=== PATIENT | female | born 1960 | race Caucasian/White ===

== ENCOUNTER → 2018-04-10 | Outpatient (CLI) | payer BC ==
[~2018-04-10] MED LIST: LIDOCAINE 1% Multi-Dose 20 ML VIAL. INJ; LIDOCAINE 1% Multi-Dose 50 ML VIAL.
== END | disposition home or self-care (01) ==
LOC: US 08:34
DX: E04.1 Nontoxic single thyroid nodule (principal)
CPT/HCPCS: 76942; 88173; 88305

== ENCOUNTER → 2020-05-09 | Outpatient (CLI) | payer OTHER | END | disposition home or self-care (01) | LOC: LAB 13:58 | PROVIDERS: ATTEND Internal Medicine Gastroenterology | DX: Z11.59 Encounter for screening for other viral diseases (principal) | CPT/HCPCS: U0003-CS ==

== ENCOUNTER → 2020-05-16 | Day surgery (SDC) | payer OTHER ==
[~2020-05-16] MED LIST changes: +ESTR1TAB22 PO; +GLYCOPYRROLATE 1 MG/5 ML VIAL. ONE; +IV RINGERS,LACTATED 1000ML 1,000 ML IV SCH; -LIDOCAINE 1% Multi-Dose 20 ML VIAL. INJ; -LIDOCAINE 1% Multi-Dose 50 ML VIAL.; +LIDOCAINE 1% PF 2 ML VIAL. ONE; +METO50TA4 PO; +PROPOFOL 10 MG/ML (20ML) VIAL. IV ONE; +TRIA1CAP3 PO; +ePHEDrine PF IN SALINE 50 MG/10 ML SYRINGE. IV ONE
[2020-05-16 07:50] VITALS: BP 114/66
--- NOTE | 2020-05-16 09:09 | HP ---
ADMIT DATE: 05/16/2020 REFERRING PHYSICIAN: Live Ashby MD REASON: History of colon cancer. HISTORY OF PRESENT ILLNESS: A 60-year-old female with past medical history significant for colon cancer, colon polyps, arthritis as well as hypertension, is seen for interval colon exam. Last exam was performed in 2009. At that time, adenomatous polyps were encountered as well as cancer. She has done well since the resection. Weight and appetite are stable. There has been no melena and/or hematochezia. There has been no diarrhea or constipation. She is otherwise without additional complaints. PAST MEDICAL HISTORY: Colon cancer, colon polyps, hypertension. ALLERGIES: IBUPROFEN. MEDICATIONS: Include estrogen, metoprolol and triamterene/hydrochlorothiazide. SOCIAL HISTORY: She is a current smoker and social drinker. FAMILY HISTORY: Significant for breast cancer with grandmother and sister. Hypertension in multiple family members and myocardial infarctions with 2 grandparents and her father. PAST SURGICAL HISTORY: Appendectomy, eye surgery, hysterectomy, tonsillectomy, colon resection. REVIEW OF SYSTEMS: As per records. PHYSICAL EXAMINATION: GENERAL: Reveals a well-nourished, well-developed female who is alert, cooperative, in no acute distress. VITAL SIGNS: Temperature 97.5, pulse 64, respiratory rate 16. LUNGS: Clear. CARDIOVASCULAR: Reveals an S1, S2 without S3, S4 or appreciable murmur. ABDOMEN: With a soft abdomen, normal bowel sounds, without appreciable hepatosplenomegaly. EXTREMITIES: Reveals no cyanosis, clubbing or edema. IMPRESSION AND PLAN: History of colon cancer with polyps. Surveillance exam is recommended at this time. Risks and benefits of procedure including risk of hemorrhage and perforation for operation have been discussed. The patient is willing to proceed. VELIA TREJO MD DR: NICOLE/omar JOB#: [id number] / [id number]
--- NOTE | 2020-05-19 18:06 | PATHOLOGY ---
[facility] Accession Number: [id number] . 01 Material submitted: . colon - SIGMOID POLYP. Modifiers: sigmoid . 01 Clinical history: . CRCS; history of CRC . 02 Diagnosis: Colon biopsies, sigmoid polyp: - Tubular adenoma. . ([facility]:mm; 05/19/2020) [facility] 05/19/2020 1614 Local . 02 Comment: There is no high grade dysplasia or evidence of malignancy. . ([facility]:mm; 05/19/2020) . 02 Electronically signed: . Kb Mayfield MD, Pathologist NPI- [id number] . 01 Gross description: . The specimen is received in formalin, labeled "Gabriela Vizcaino, sigmoid polyp". Received are two segments of pale sabillon soft tissue measuring 0.3 and 0.4 cm in maximum dimensions. The specimen is submitted entirely in cassette A1. ([facility]; 05/16/2020) [facility] 05/16/2020 1613 Local . 02 Pathologist provided ICD-10: D12.5 . 02 CPT . 732681 Specimen Comment: A courtesy copy of this report has been sent to [phone] Specimen Comment: [id number] Specimen Comment: Report sent to / DR GAUTAM Performed at: 01 [facility] [address], [place] [id number] MD Darrell Amos MD Phone: [phone] Performed at: [address] [facility] [address], [place] [id number] MD Kb Mayfield MD Phone: [phone]
== END ==
LOC: ENDOS 06:01
PROVIDERS: ATTEND Internal Medicine Gastroenterology
DX: Z12.11 Encounter for screening for malignant neoplasm of colon (principal); D12.5 Benign neoplasm of sigmoid colon; K64.0 First degree hemorrhoids; Z86.010 Personal history of colon polyps; Z98.890 Other specified postprocedural states
CPT/HCPCS: 45380; 88305; J2704; J3490